=== PATIENT | male | born 1945 | race Caucasian/White ===

== ENCOUNTER 2016-12-22 17:43 | Emergency (ER) | payer MEDICARE, BC ==
--- NOTE | 2016-12-22 17:45 | EDM.PDOC ---
ED HPI NEURO - General Chief Complaint: Neuro Symptoms/Deficits Stated Complaint: MUSCLE SPASM/CANT WALK/NAUSEA Source of Information: Reports: Patient, RN, RN notes reviewed - Related Data Allergies/ADRs: Allergies Allergy/AdvReac Type Severity Reaction Status Date / Time No Known Allergies Allergy Verified 11/21/14 13:33
[2016-12-22] MEDS ORDERED: methylPREDNISolone Sodium Succinate 125 MG/2 ML SDV IM ONE (19:17)
[2016-12-22 19:20] LABS: CHLORIDE,CL 100 mmol/L (101-111); SODIUM,NA 131 mmol/L (135-145)
--- NOTE | 2016-12-22 19:25 | EDM.PDOC ---
ED HPI LOWER BACK PAIN/INJURY - General Chief Complaint: Back Pain or Injury Stated Complaint: MUSCLE SPASM/CANT WALK/NAUSEA Time Seen by Provider: 12/22/16 19:21 Source of Information: Reports: Patient History Limitations: Reports: Other - History of Present Illness INITIAL COMMENTS - FREE TEXT/NARRATIVE: states been having low back pain all day. [place] and also allergic to barley dust which he gets every year and been congested and sneezing. denies h/o K- stones but has prostate problem. 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 explained to Pt not advisable but Pt insistent. - Related Data Allergies/ADRs: Allergies Allergy/AdvReac Type Severity Reaction Status Date / Time No Known Allergies Allergy Verified 12/22/16 18:15 Home Meds: Home Meds Aspirin [Halfprin] 841 mg PO DAILY 12/22/16 [History] Pravastatin Sodium 10 mg PO DAILY 12/22/16 [History] Warfarin Sodium [Jantoven] 5 mg PO DAILY 12/22/16 [History] amLODIPine [Norvasc] 10 mg PO DAILY 12/22/16 [History] Past Medical History HEENT History: Reports: Allergic rhinitis Cardiovascular History: Reports: High cholesterol, Hypertension Musculoskeletal History: Reports: Back pain, chronic Hematologic History: Reports: Anticoagulation therapy - Past Surgical History Other Musculoskeletal Surgeries/Procedures:: right leg surgery x4 Social & Family History - Family History Family Medical History: Noncontributory - Tobacco Use Smoking Status *Q: Former Smoker Used Tobacco, but Quit: Yes Month Tobacco Last Used: 20 - Caffeine Use Caffeine Use: Reports: Coffee - Recreational Drug Use Recreational Drug Use: No ED ROS GENERAL - Review of Systems Review Of Systems: ROS reveals no pertinent complaints other than HPI. ED EXAM,LOWER BACK PAIN/INJURY - Physical Exam Exam: See Below Exam Limited By: No limitations General Appearance: alert, WD/WN, mild distress, other (back pain) Ears: hearing grossly normal Nose: nasal drainage, clear rhinorrhea Throat/Mouth: Normal voice, No airway compromise Head: atraumatic, normocephalic Neck: non-tender, full range of motion Respiratory/Chest: no respiratory distress Cardiovascular: regular rate, rhythm GI/Abdominal: soft, non tender Back Exam: muscle spasm, paraspinal tenderness, other (bilat LS paravert' without sciatica) Neurological: alert Psychiatric: flat affect Skin Exam: Warm, Dry Lymphatic: no adenopathy Course - Vital Signs Last Recorded V/S: Last Vital Signs Temp 37.7 C 12/22/16 18:20 Pulse 110 H 12/22/16 18:20 Resp 20 12/22/16 18:20 BP 158/94 H 12/22/16 18:20 Pulse Ox 97 12/22/16 18:20 - Orders/Labs/Meds Orders: Active Orders 24 hr Category Date Time Status CULTURE STREP A CONFIRMATION [RM] Stat Lab 12/22/16 18:29 Results STREP SCRN A RAPID W CULT CONF [] Stat Lab 12/22/16 18:29 Results Labs: Laboratory Tests 12/22/16 12/22/16 12/22/16 Range/Units 18:45 18:53 18:53 WBC 13.5 H (5.0-10.0) 10^3/uL RBC 4.55 L (4.6-6.2) 10^6/uL Hgb 13.8 L (14.0-18.0) g/dL Hct 41.0 (40.0-54.0) % MCV 90.1 (80-100) fL MCH 30.3 (27.0-34.0) pg MCHC 33.7 (33.0-35.0) g/dL Plt Count 209 (150-450) 10^3/uL Neut % (Auto) 93.3 H (42.2-75.2) % Lymph % (Auto) 3.1 L (20.5-50.1) % [place] % (Auto) 3.0 (2-8) % Eos % (Auto) 0.0 L (1.0-3.0) % Baso % (Auto) 0.6 (0.0-1.0) % Sodium 131 L (135-145) mmol/L Potassium 4.0 (3.6-5.0) mmol/L Chloride 100 L (101-111) mmol/L Carbon Dioxide 24.0 (21.0-31.0) mmol/L Anion Gap 11.0 BUN 16 (7-18) mg/dL Creatinine 1.1 (0.6-1.3) mg/dL Est Cr Clr Drug Dosing 73.62 mL/min Estimated GFR (MDRD) > 60 BUN/Creatinine Ratio 14.54 Glucose 123 H (74-105) mg/dL Calcium 8.6 (8.4-10.2) mg/dl Magnesium 1.5 L (1.8-2.5) mg/dL Total Bilirubin 1.0 (0.2-1.0) mg/dL AST 26 (10-42) IU/L ALT 17 (10-60) IU/L Alkaline Phosphatase 42 (42-121) IU/L Total Protein 7.2 (6.7-8.2) g/dl Albumin 4.1 (3.2-5.5) g/dl Globulin 3.1 Albumin/Globulin Ratio 1.32 Urine Color Dark yellow (YELLOW) Urine Appearance Slightly cloudy (CLEAR) Urine pH 8.5 (5.0-9.0) Ur Specific [place] 1.015 (1.005-1.030) Urine Protein 30 H (NEGATIVE) Urine Glucose (UA) Negative (NEGATIVE) Urine Ketones 40 H (NEGATIVE) Urine Occult Blood Trace-intact H (NEGATIVE) Urine Nitrite Negative (NEGATIVE) Urine Bilirubin Small H (NEGATIVE) Urine Urobilinogen 1.0 (0.2-1.0) mg/dL Ur Leukocyte Esterase Negative (NEGATIVE) Urine RBC 5-10 H /HPF Urine WBC 0-5 (0-5/HPF) /HPF Amorphous Sediment Moderate (0/HPF) /HPF Urine Bacteria Rare (0-FEW/HPF) /HPF Urine Mucus Few H /LPF Meds: Medications Discontinued Medications Generic Name Dose Route Start Last Admin Trade Name Freq PRN Reason Stop Dose Admin Ketorolac Tromethamine 30 mg 12/22/16 19:53 12/22/16 19:58 Toradol IM 12/22/16 19:54 30 mg ONETIME ONE Administration Methylprednisolone Sodium Succinate 125 mg 12/22/16 19:17 12/22/16 19:24 Solu-Medrol IM 12/22/16 19:18 125 mg ONETIME ONE Administration - Re-Assessments/Exams Free Text/Narrative Re-Assessment/Exam: 12/22/16 19:52 s/p IM solumedrol feeling better but still hurts a l9ot to move. 12/22/16 20:37 s/p toradol = much better but not 100% Departure - Departure Time of Disposition: 20:38 Disposition: Home, Self-Care 01 Condition: good Clinical Impression: Lumbar back pain Qualifiers: Chronicity: acute Back pain laterality: bilateral Sciatica presence: without sciatica Qualified Code(s): M54.5 - Low back pain Instructions: Back Pain, Adult, [id number] Forms: ED Department Discharge Additional Instructions: 1) avoid bending lifting straining next 3 to 4 days 2) use ice or heat to sore area. 3) try tylenol or motrin for pain 4) follow up at clinic or recheck as needed rx togo: norco prn
[2016-12-22] MEDS ORDERED: Ketorolac 30 MG/ML SDV IM ONE (19:53)
[2016-12-22] MEDS ORDERED: Acetaminophen/HYDROcodone 325-10 MG Tab PO ONE (20:42)
[2016-12-22] MEDS ORDERED: Acetaminophen/HYDROcodone 325-10 MG Tab ONE (20:42)
[2016-12-22 20:46] VITALS: BP 122/73
== END 2016-12-22 20:50 | disposition home or self-care (01) ==
LOC: DL.ED 17:43
DX: M54.5 Low back pain (principal); I10 Essential (primary) hypertension; E78.00 Pure hypercholesterolemia, unspecified; Z79.82 Long term (current) use of aspirin; Z79.01 Long term (current) use of anticoagulants; Z79.899 Other long term (current) drug therapy; Z87.891 Personal history of nicotine dependence
CPT/HCPCS: 36415; 80053; 81001; 83735; 85025; 87081; 87430; 87804; 96372; 99283; A9270; J1885; J2930

== ENCOUNTER 2016-12-24 05:42 | Emergency (ER) | payer MEDICARE, BC ==
[2016-12-24 05:51] VITALS: BP 139/73
[2016-12-24] MEDS ORDERED: Ketorolac 30 MG/ML SDV IM ONE (06:05)
--- NOTE | 2016-12-24 06:13 | EDM.PDOC ---
ED HPI GENERAL MEDICAL PROBLEM - General Chief Complaint: General Stated Complaint: PAIN Time Seen by Provider: 12/24/16 06:10 Source of Information: Reports: Patient History Limitations: Reports: No limitations - History of Present Illness INITIAL COMMENTS - FREE TEXT/NARRATIVE: c/o recurrent LBP was @ clinic yesterday and given prednisone & T#3 but not helping. was here prior got hydro+IM toradol that worked and able to sleep the night. Back Pain Score (Numeric/FACES): 10 - Related Data Allergies Allergy/AdvReac Type Severity Reaction Status Date / Time No Known Allergies Allergy Verified 12/22/16 18:15 Home Meds: Home Meds Aspirin [Halfprin] 841 mg PO DAILY 12/22/16 [History] Pravastatin Sodium 10 mg PO DAILY 12/22/16 [History] Warfarin Sodium [Jantoven] 5 mg PO DAILY 12/22/16 [History] amLODIPine [Norvasc] 10 mg PO DAILY 12/22/16 [History] Past Medical History HEENT History: Reports: Allergic rhinitis Cardiovascular History: Reports: High cholesterol, Hypertension Respiratory History: Reports: None Gastrointestinal History: Reports: None Genitourinary History: Reports: None Musculoskeletal History: Reports: Back pain, chronic Neurological History: Reports: None Psychiatric History: Reports: None Hematologic History: Reports: Anticoagulation therapy Immunologic History: Reports: None Oncologic (Cancer) History: Reports: None Dermatologic History: Reports: None - Past Surgical History Other Musculoskeletal Surgeries/Procedures:: right leg surgery x4 Social & Family History - Family History Family Medical History: Noncontributory - Tobacco Use Smoking Status *Q: Former Smoker Used Tobacco, but Quit: Yes Month Tobacco Last Used: 20 - Caffeine Use Caffeine Use: Reports: Coffee - Recreational Drug Use Recreational Drug Use: No ED ROS GENERAL - Review of Systems Review Of Systems: ROS reveals no pertinent complaints other than HPI. ED EXAM, GENERAL - Physical Exam Exam: See Below Exam Limited By: No limitations General Appearance: alert, WD/WN, mild distress, other (LBP) Ears: hearing grossly normal Throat/Mouth: Normal voice, No airway compromise Head: atraumatic Neck: non-tender, full range of motion Respiratory/Chest: no respiratory distress Cardiovascular: regular rate, rhythm GI/Abdominal: soft, non tender Back Exam: muscle spasm, paraspinal tenderness, other (bilateral LS mild sciatica. gait limited to pain.) Neurological: alert, oriented, normal cognition, no motor/sensory deficits Psychiatric: tearful Skin Exam: Warm, Dry Lymphatic: no adenopathy Course - Vital Signs Last Recorded V/S: Last Vital Signs Temp 36.3 C 12/24/16 05:46 Pulse 87 12/24/16 05:46 Resp 18 12/24/16 05:46 BP 139/73 12/24/16 05:46 Pulse Ox 97 12/24/16 05:46 - Orders/Labs/Meds Meds: Medications Discontinued Medications Generic Name Dose Route Start Last Admin Trade Name Freq PRN Reason Stop Dose Admin Hydrocodone Bitart/Acetaminophen 1 tab 12/24/16 06:45 [place] 325-10 Mg PO 12/24/16 06:46 ONETIME ONE Ketorolac Tromethamine 30 mg 12/24/16 06:05 12/24/16 06:09 Toradol IM 12/24/16 06:06 30 mg ONETIME ONE Administration - Re-Assessments/Exams Free Text/Narrative Re-Assessment/Exam: 12/24/16 06:47 s/p toradol=better but not 100% Departure - Departure Time of Disposition: 06:47 Disposition: Home, Self-Care 01 Condition: good Clinical Impression: Lumbar radicular syndrome Instructions: Back Pain, Adult, [id number] Forms: ED Department Discharge Additional Instructions: 1) rest 2) avoid bending lifting straining 3) try heat or ice to sore area 4) see family doctor Monday for possible MRI SCAN OF LUMBAR-SACRAL region rx given: vicodin 5/325mg tid prn x 12
[2016-12-24] MEDS ORDERED: Acetaminophen/HYDROcodone 325-10 MG Tab PO ONE (06:45)
== END 2016-12-24 06:57 | disposition home or self-care (01) ==
LOC: DL.ED 05:42
DX: M54.16 Radiculopathy, lumbar region (principal); E78.00 Pure hypercholesterolemia, unspecified; I10 Essential (primary) hypertension; Z79.82 Long term (current) use of aspirin; Z79.01 Long term (current) use of anticoagulants; Z79.899 Other long term (current) drug therapy; Z87.891 Personal history of nicotine dependence
CPT/HCPCS: 96372; 99282; A9270; J1885; 99283

== ENCOUNTER 2016-12-26 10:31 | Emergency (ER) | payer MEDICARE, BC ==
--- NOTE | 2016-12-26 10:58 | EDM.PDOC ---
ED HPI Skin/Rash - General Chief Complaint: Skin Complaint Stated Complaint: IN BY [facility] Time Seen by Provider: 12/26/16 10:55 Source: Reports: Patient, EMS History Limitations: Reports: No limitations - History of Present Illness INITIAL COMMENTS - FREE TEXT/NARRATIVE: This 71 yo male patient reports to the ED with diffuse pain (lower back, upper back, posterior neck, left hand, right elbow and right knee). This patient has been seen in the past week in the ED and in the clinic for these symptoms. The patient was placed on steroids, hydrocodone, acetaminophen and flexeril with little to no symptom relief. The patient reports similar symptoms in the past due to a reaction to Barley dust. 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, Other medication(s) - Related Data Allergies Allergy/AdvReac Type Severity Reaction Status Date / Time No Known Allergies Allergy Verified 12/26/16 10:15 Home Meds: Ambulatory Orders Medication Instructions Recorded Confirmed Aspirin [Halfprin] 841 mg PO .3 TIMES WEEK 12/22/16 12/26/16 Pravastatin Sodium 10 mg PO DAILY 12/22/16 12/26/16 Warfarin Sodium [Jantoven] 5 mg PO .4DAYS A WEEK 12/22/16 12/26/16 amLODIPine [Norvasc] 10 mg PO DAILY 12/22/16 12/26/16 Hydrocodone/Acetaminophen 1 tab PO ASDIRECTED 12/26/16 12/26/16 [Hydrocodon-Acetaminophen 5-325] Prednisone [IJD: predniSONE] 40 mg PO WITHBREAKFAST 12/26/16 12/26/16 Warfarin Sodium [Coumadin] 7.5 mg PO .3 TIMES WEEK 12/26/16 12/26/16 Past Medical History HEENT History: Reports: Allergic rhinitis Cardiovascular History: Reports: High cholesterol, Hypertension Respiratory History: Reports: None Gastrointestinal History: Reports: None Genitourinary History: Reports: None Musculoskeletal History: Reports: Back pain, chronic Neurological History: Reports: None Psychiatric History: Reports: None Hematologic History: Reports: Anticoagulation therapy Immunologic History: Reports: None Oncologic (Cancer) History: Reports: None Dermatologic History: Reports: None - Past Surgical History Other Musculoskeletal Surgeries/Procedures:: right leg surgery x4 Social & Family History - Family History Family Medical History: Noncontributory - Tobacco Use Smoking Status *Q: Former Smoker Years of Tobacco use: 20 Used Tobacco, but Quit: No Month Tobacco Last Used: 20 - Caffeine Use Caffeine Use: Reports: Coffee - Recreational Drug Use Recreational Drug Use: No ED ROS GENERAL - Review of Systems Review Of Systems: ROS reveals no pertinent complaints other than HPI. ED EXAM, SKIN/RASH Exam: See Below Exam Limited By: No limitations General Appearance: alert, WD/WN, severe distress Eye Exam: bilateral eye: EOMI, normal inspection, PERRL Ears: normal external exam, normal canal, hearing grossly normal, normal TMs Nose: normal inspection, normal mucosa, no blood Throat/Mouth: Normal inspection, Normal lips, Normal teeth, Normal gums, Normal oropharynx, Normal voice, No airway compromise Head: atraumatic, normocephalic Neck: tender midline Respiratory/Chest: no respiratory distress, lungs clear, normal breath sounds, no accessory muscle use, chest non-tender Cardiovascular: normal peripheral pulses, regular rate, rhythm, no edema, no gallop, no JVD, no murmur, no rub GI/Abdominal: normal bowel sounds, soft, non tender, no organomegaly, no distention, no abnormal bruit, no mass (Male) Exam: Deferred Rectal (Males) Exam: Deferred Back Exam: decreased range of motion, vertebral tenderness Extremities: leg pain (right knee), increased warmth (left hand, right elbow), redness (left hand and right elbow) Neurological: alert, oriented, CN II-XII intact, normal cognition, normal gait, normal reflexes, no motor/sensory deficits Psychiatric: normal affect, normal mood Location, Skin: upper extremity, right (elbow), upper extremity, left (elbow) Characteristics: erythematous Associated features: warmth, tenderness, swelling Lymphatic: no adenopathy Course - Vital Signs Last Recorded V/S: Last Vital Signs Temp 37.2 C 12/26/16 10:30 Pulse 77 12/26/16 10:30 Resp BP 145/94 H 12/26/16 10:30 Pulse Ox - Orders/Labs/Meds Orders: Active Orders 24 hr Category Date Time Status Late Tray [DIET] Routine Diet 12/26/16 12:36 Active CULTURE BLOOD [BC] Stat Lab 12/26/16 11:24 Received CULTURE BLOOD [BC] Stat Lab 12/26/16 11:29 Received UA W/MICROSCOPIC [URIN] Stat Lab 12/26/16 10:44 Uncollected Blood Culture x2 Reflex Set [OM.PC] Stat Oth 12/26/16 11:13 Ordered Labs: Laboratory Tests 12/26/16 12/26/16 12/26/16 Range/Units 10:53 10:53 10:53 WBC 21.1 H (5.0-10.0) 10^3/uL RBC 4.34 L (4.6-6.2) 10^6/uL Hgb 13.2 L (14.0-18.0) g/dL Hct 37.9 L (40.0-54.0) % MCV 87.3 (80-100) fL MCH 30.4 (27.0-34.0) pg MCHC 34.8 (33.0-35.0) g/dL Plt Count 211 (150-450) 10^3/uL Neut % (Auto) 85.8 H (42.2-75.2) % Lymph % (Auto) 2.4 L (20.5-50.1) % [place] % (Auto) 11.6 H (2-8) % Eos % (Auto) 0.0 L (1.0-3.0) % Baso % (Auto) 0.2 (0.0-1.0) % ESR (0-15) mm/hr PT (9.0-12.0) SEC INR (0.9-1.2) D-Dimer, Quantitative 3150 H (0-400) ng/mL Sodium 127 L (135-145) mmol/L Potassium 3.8 (3.6-5.0) mmol/L Chloride 94 L (101-111) mmol/L Carbon Dioxide 23.0 (21.0-31.0) mmol/L Anion Gap 13.8 BUN 27 H (7-18) mg/dL Creatinine 1.0 (0.6-1.3) mg/dL Est Cr Clr Drug Dosing TNP Estimated GFR (MDRD) > 60 BUN/Creatinine Ratio 27.00 Glucose 109 H (74-105) mg/dL Lactic Acid (0.5-2.2) mmol/L Uric Acid (2.6-7.2) mg/dL Calcium 8.3 L (8.4-10.2) mg/dl Total Bilirubin 1.0 (0.2-1.0) mg/dL AST 18 (10-42) IU/L ALT 16 (10-60) IU/L Alkaline Phosphatase 56 (42-121) IU/L Total Protein 6.6 L (6.7-8.2) g/dl Albumin 2.9 L (3.2-5.5) g/dl Globulin 3.7 Albumin/Globulin Ratio 0.78 12/26/16 12/26/16 12/26/16 Range/Units 10:53 10:53 10:53 WBC (5.0-10.0) 10^3/uL RBC (4.6-6.2) 10^6/uL Hgb (14.0-18.0) g/dL Hct (40.0-54.0) % MCV (80-100) fL MCH (27.0-34.0) pg MCHC (33.0-35.0) g/dL Plt Count (150-450) 10^3/uL Neut % (Auto) (42.2-75.2) % Lymph % (Auto) (20.5-50.1) % [place] % (Auto) (2-8) % Eos % (Auto) (1.0-3.0) % Baso % (Auto) (0.0-1.0) % ESR 102 H (0-15) mm/hr PT 84.3 H (9.0-12.0) SEC INR 8.4 H* (0.9-1.2) D-Dimer, Quantitative (0-400) ng/mL Sodium (135-145) mmol/L Potassium (3.6-5.0) mmol/L Chloride (101-111) mmol/L Carbon Dioxide (21.0-31.0) mmol/L Anion Gap BUN (7-18) mg/dL Creatinine (0.6-1.3) mg/dL Est Cr Clr Drug Dosing Estimated GFR (MDRD) BUN/Creatinine Ratio Glucose (74-105) mg/dL Lactic Acid (0.5-2.2) mmol/L Uric Acid 5.5 (2.6-7.2) mg/dL Calcium (8.4-10.2) mg/dl Total Bilirubin (0.2-1.0) mg/dL AST (10-42) IU/L ALT (10-60) IU/L Alkaline Phosphatase (42-121) IU/L Total Protein (6.7-8.2) g/dl Albumin (3.2-5.5) g/dl Globulin Albumin/Globulin Ratio // Range/Units 11:24 WBC (5.0-10.0) 10^3/uL RBC (4.6-6.2) 10^6/uL Hgb (14.0-18.0) g/dL Hct (40.0-54.0) % MCV (80-100) fL MCH (27.0-34.0) pg MCHC (33.0-35.0) g/dL Plt Count (150-450) 10^3/uL Neut % (Auto) (42.2-75.2) % Lymph % (Auto) (20.5-50.1) % [place] % (Auto) (2-8) % Eos % (Auto) (1.0-3.0) % Baso % (Auto) (0.0-1.0) % ESR (0-15) mm/hr PT (9.0-12.0) SEC INR (0.9-1.2) D-Dimer, Quantitative (0-400) ng/mL Sodium (135-145) mmol/L Potassium (3.6-5.0) mmol/L Chloride (101-111) mmol/L Carbon Dioxide (21.0-31.0) mmol/L Anion Gap BUN (7-18) mg/dL Creatinine (0.6-1.3) mg/dL Est Cr Clr Drug Dosing Estimated GFR (MDRD) BUN/Creatinine Ratio Glucose (74-105) mg/dL Lactic Acid 1.1 (0.5-2.2) mmol/L Uric Acid (2.6-7.2) mg/dL Calcium (8.4-10.2) mg/dl Total Bilirubin (0.2-1.0) mg/dL AST (10-42) IU/L ALT (10-60) IU/L Alkaline Phosphatase (42-121) IU/L Total Protein (6.7-8.2) g/dl Albumin (3.2-5.5) g/dl Globulin Albumin/Globulin Ratio Meds: Medications Discontinued Medications Generic Name Dose Route Start Last Admin Trade Name Freq PRN Reason Stop Dose Admin Hydromorphone HCl 0.5 mg 12/26/16 11:21 12/26/16 11:38 Dilaudid IVPUSH 12/26/16 11:22 0.5 mg ONETIME ONE Administration - Re-Assessments/Exams Free Text/Narrative Re-Assessment/Exam: 12/26/16 12:50 Discussed the history, examination and lab results with Dr. Montes De Oca. Dr. Montes De Oca advised to transfer the patient to [facility] in [place] for Ortho/Rheum consults. Departure - Departure Time of Disposition: 12:48 Disposition: DC/Tfer to [facility] 02 Condition: poor Clinical Impression: Inflammatory arthritis Forms: Interfacility Transfer EMTALA Care Plan Goals: Discussed the history, examination, treatments and lab results with Dr. Montes De Oca. Dr. Montes De Oca called [facility] in [place] and spoke with Dr. Oh regarding the patient. Dr. Oh accepted the patient for continued evaluation and management. The patient will be transported by [facility]. - My Orders Last 24 Hours: My Active Orders 12/26/16 10:44 UA W/MICROSCOPIC [URIN] Stat 12/26/16 11:13 Blood Culture x2 Reflex Set [OM.PC] Stat 12/26/16 11:24 CULTURE BLOOD [BC] Stat 12/26/16 11:29 CULTURE BLOOD [BC] Stat 12/26/16 12:36 Late Tray [DIET] Routine - Assessment/Plan Last 24 Hours: My Active Orders 12/26/16 10:44 UA W/MICROSCOPIC [URIN] Stat 12/26/16 11:13 Blood Culture x2 Reflex Set [OM.PC] Stat 12/26/16 11:24 CULTURE BLOOD [BC] Stat 12/26/16 11:29 CULTURE BLOOD [BC] Stat 12/26/16 12:36 Late Tray [DIET] Routine
[2016-12-26] MEDS ORDERED: HYDROmorphone 1 MG/ML Syringe IVPUSH ONE ×2 (11:21→12:52)
[2016-12-26 11:24] LABS: CHLORIDE,CL 94 mmol/L (101-111); SODIUM,NA 127 mmol/L (135-145)
[2016-12-26 14:17] VITALS: BP 136/72
== END 2016-12-26 13:33 ==
LOC: DL.ED 10:31
DX: M19.90 Unspecified osteoarthritis, unspecified site (principal); I10 Essential (primary) hypertension; E78.00 Pure hypercholesterolemia, unspecified; Z79.82 Long term (current) use of aspirin; Z79.01 Long term (current) use of anticoagulants; Z79.899 Other long term (current) drug therapy; Z87.891 Personal history of nicotine dependence
CPT/HCPCS: 36415; 80053; 81001; 83605; 84550; 85025; 85379; 85610; 85651; 87040; 96374; 96376; 99285; J1170; 99284

== ENCOUNTER 2017-01-01 23:21 | Observation (INO) | payer MEDICARE, BC ==
[2017-01-01] MEDS ORDERED: Iopamidol 612 MG/ML 75 ML Bottle IVPUSH ONE (23:38)
[2017-01-02 00:11] LABS: CHLORIDE,CL 96 mmol/L (101-111); SODIUM,NA 131 mmol/L (135-145)
[2017-01-02] MEDS ORDERED: Piperacillin/Tazobactam 3.375 GM in Sodium Chloride 0.9% 100 ML IV ONE (01:38)
[2017-01-02] MEDS ORDERED: Ondansetron 4 MG Tab.DIS PO PRN (04:02)
[2017-01-02] MEDS ORDERED: Bisacodyl 5 MG Tab PO PRN (04:02)
[2017-01-02] MEDS ORDERED: Polyethylene Glycol 3350 Powder 17 GM Packet PO PRN (04:02)
[2017-01-02] MEDS ORDERED: Magnesium Hydroxide 400 MG/5 ML Susp 30 ML Cup PO PRN (04:02)
[2017-01-02] MEDS ORDERED: Bisacodyl 10 MG Supp RECTAL PRN (04:08)
[2017-01-02] MEDS ORDERED: Aluminum Hydroxide/Magnesium Hydroxide/Simethicone Susp 30 ML Cup PO PRN (04:09)
[2017-01-02] MEDS ORDERED: Pantoprazole 40 MG Tab.CR PO SCH ×2 (04:15→06:00)
[2017-01-02] MEDS ORDERED: Warfarin 5 MG Tab PO SCH (04:15)
[2017-01-02] MEDS: Morphine 2 MG/ML Syringe IVPUSH PRN ×2 (04:24→13:09)
[2017-01-02] MEDS: Cyclobenzaprine 10 MG Tab PO PRN ×2 (04:31→13:08)
[2017-01-02] MEDS: Piperacillin/Tazobactam 3.375 GM in Sodium Chloride 0.9% 100 ML IV SCH ×2 (04:37→10:46)
--- NOTE | 2017-01-02 05:08 | EDM.PDOC ---
ED HPI GENERAL MEDICAL PROBLEM - General Chief Complaint: Back Pain or Injury Stated Complaint: AMB Time Seen by Provider: 01/01/17 23:40 Source of Information: Reports: Patient, EMS History Limitations: Reports: No limitations - History of Present Illness INITIAL COMMENTS - FREE TEXT/NARRATIVE: ED with c/o abdominal pain and bloating. Recently discharged from [facility] with polyarticular arthritis. Notes someimprovment in shoulder pain. Left hand more swollen and red. chronic back pain and takes routine oxycodone for pain. last BM yesterday. Hx constipation. Recently put on prednisone. 1mg Dilaudid enroute. pain improved from 07/21 to 10/21. Denies nausea. Generalized Pain Score (Numeric/FACES): 2 - Related Data Allergies Allergy/AdvReac Type Severity Reaction Status Date / Time No Known Allergies Allergy Verified 12/26/16 10:15 Home Meds: Home Meds Aspirin [Halfprin] 841 mg PO .3 TIMES WEEK 12/22/16 [History] Pravastatin Sodium 10 mg PO DAILY 12/22/16 [History] Warfarin Sodium [Jantoven] 10 mg PO .4DAYS A WEEK 12/22/16 [History] amLODIPine [Norvasc] 10 mg PO DAILY 12/22/16 [History] Hydrocodone/Acetaminophen [Hydrocodon-Acetaminophen 5-325] 1 tab PO ASDIRECTED 12/26/16 [History] Prednisone [IJD: predniSONE] 40 mg PO WITHBREAKFAST 12/26/16 [History] Past Medical History HEENT History: Reports: Allergic rhinitis Cardiovascular History: Reports: High cholesterol, Hypertension Respiratory History: Reports: None Gastrointestinal History: Reports: None Genitourinary History: Reports: Other (see below) Other Genitourinary History: Has enlarged scrotum from a surgery he had several years ago Musculoskeletal History: Reports: Back pain, chronic Neurological History: Reports: None Psychiatric History: Reports: None Hematologic History: Reports: Anticoagulation therapy Immunologic History: Reports: None Oncologic (Cancer) History: Reports: None Dermatologic History: Reports: None - Past Surgical History Other Musculoskeletal Surgeries/Procedures:: right leg surgery x4 Social & Family History - Family History Family Medical History: Noncontributory - Tobacco Use Smoking Status *Q: Former Smoker Years of Tobacco use: 25 Packs/Tins Daily: 2 Used Tobacco, but Quit: No Month Tobacco Last Used: 20 Tobacco Use Comment: Uses smokeless tobacco uses 1 pouch a day Second Hand Smoke Exposure: No - Caffeine Use Caffeine Use: Reports: None - Recreational Drug Use Recreational Drug Use: No ED ROS GENERAL - Review of Systems Review Of Systems: See Below Constitutional: Reports: no symptoms HEENT: Reports: No symptoms Respiratory: Reports: No Symptoms Cardiovascular: Reports: No symptoms GI/Abdominal: Reports: Abdominal pain, Constipation, Distension. Denies: Nausea , Vomiting : Reports: other (difficulty urinating at times) Musculoskeletal: Reports: hand pain (left), joint pain, joint swelling Skin: Reports: erythema (left hand) Neurological: Reports: No Symptoms Psychiatric: Reports: No symptoms ED EXAM, GENERAL - Physical Exam Exam: See Below Exam Limited By: Uncooperative General Appearance: mild distress (increases with movment) Eye Exam: bilateral eye: EOMI Ears: normal external exam, normal TMs Nose: normal inspection Throat/Mouth: Normal inspection Head: atraumatic, normocephalic Neck: normal inspection Respiratory/Chest: no respiratory distress, lungs clear, normal breath sounds Cardiovascular: normal peripheral pulses, regular rate, rhythm GI/Abdominal: distended, abnormal bowel sounds:. No: guarding, rigid, rebound (Male) Exam: Scrotal swelling (unchanged from norm) Back Exam: decreased range of motion, muscle spasm, paraspinal tenderness Extremities: normal inspection, pedal edema (right lower extemity greater than right) Neurological: alert, oriented, normal cognition Psychiatric: normal affect, normal mood (talkeative, detailed) Skin Exam: Warm, Dry, Intact, Erythema (dorsal left hand) Course - Vital Signs Last Recorded V/S: Last Vital Signs Temp 97.5 F 01/02/17 03:01 Pulse 87 01/02/17 03:01 Resp 16 01/02/17 03:01 BP 129/82 01/02/17 03:01 Pulse Ox 95 01/02/17 03:01 - Orders/Labs/Meds Orders: Active Orders 24 hr Category Date Time Status CULTURE BLOOD [BC] Stat Lab 01/01/17 23:43 Received Medication Orders Al Hydroxide/Mg Hydroxide (Mag-Al Plus) 30 ml PO Q4H PRN PRN Reason: Abdominal Pain Amlodipine Besylate (Norvasc) 10 mg PO DAILY MORGAN Aspirin (Halfprin) 841 mg PO .3 TIMES WEEK [facility]GAN Bisacodyl (Dulcolax) 5 mg PO DAILY PRN PRN Reason: Constipation Bisacodyl (Dulcolax) 10 mg RECTAL DAILY PRN PRN Reason: Constipation Last Admin: 01/02/17 04:31 Dose: 10 mg Cyclobenzaprine HCl (Flexeril) 10 mg PO TID PRN PRN Reason: Muscle Spasm Last Admin: 01/02/17 04:31 Dose: 10 mg Piperacillin Sod/Tazobactam (Sod 3.375 gm/ Sodium Chloride) 100 mls @ 200 mls/ hr IV Q6H MORGAN Last Admin: 01/02/17 04:37 Dose: Magnesium Hydroxide (Milk Of Magnesia) 30 ml PO Q12H PRN PRN Reason: Constipation Last Admin: 01/02/17 04:26 Dose: 30 ml Morphine Sulfate (Morphine) 2 mg IVPUSH Q2H PRN PRN Reason: Pain (severe 7-10) Last Admin: 01/02/17 04:24 Dose: 2 mg Ondansetron HCl (Zofran Odt) 4 mg PO Q4H PRN PRN Reason: nausea, able to take PO Oxycodone/Acetaminophen (Percocet 325-5 Mg) 1 tab PO Q4H PRN PRN Reason: Pain (moderate 4-6) Pantoprazole Sodium (Protonix) 40 mg PO ACBREAKFAST [facility] Polyethylene Glycol (Miralax) 17 gm PO DAILY PRN PRN Reason: Constipation Last Admin: 01/02/17 04:26 Dose: 17 gm Pravastatin Sodium (Pravachol) 10 mg PO DAILY [facility] Prednisone (Prednisone) 40 mg PO WITHBREAKFAST [facility] Warfarin Sodium (Coumadin) 10 mg PO .4DAYS A WEEK [facility] Labs: Laboratory Tests 01/01/17 01/01/17 01/01/17 Range/Units 23:43 23:43 23:43 WBC 28.1 H* (5.0-10.0) 10^3/uL RBC 3.99 L (4.6-6.2) 10^6/uL Hgb 12.2 L (14.0-18.0) g/dL Hct 35.8 L (40.0-54.0) % MCV 89.7 (80-100) fL MCH 30.6 (27.0-34.0) pg MCHC 34.1 (33.0-35.0) g/dL Plt Count 467 H (150-450) 10^3/uL Neut % (Auto) 91.8 H (42.2-75.2) % Lymph % (Auto) 2.6 L (20.5-50.1) % Dukes % (Auto) 5.3 (2-8) % Eos % (Auto) 0.1 L (1.0-3.0) % Baso % (Auto) 0.2 (0.0-1.0) % Add Manual Diff Yes Neutrophils % (Manual) 82 % Band Neutrophils % 5 % Lymphocytes % (Manual) 6 % Monocytes % (Manual) 7 % PT 33.7 H (9.0-12.0) SEC INR 3.3 H (0.9-1.2) Sodium 131 L (135-145) mmol/L Potassium 4.2 (3.6-5.0) mmol/L Chloride 96 L (101-111) mmol/L Carbon Dioxide 28.0 (21.0-31.0) mmol/L Anion Gap 11.2 BUN 27 H (7-18) mg/dL Creatinine 0.8 (0.6-1.3) mg/dL Est Cr Clr Drug Dosing TNP Estimated GFR (MDRD) > 60 BUN/Creatinine Ratio 33.75 Glucose 150 H (74-105) mg/dL Lactic Acid (0.5-2.2) mmol/L Calcium 7.9 L (8.4-10.2) mg/dl Total Bilirubin 1.5 H (0.2-1.0) mg/dL AST 268 H (10-42) IU/L ALT 130 H (10-60) IU/L Alkaline Phosphatase 479 H (42-121) IU/L Total Protein 5.8 L (6.7-8.2) g/dl Albumin 2.2 L (3.2-5.5) g/dl Globulin 3.6 Albumin/Globulin Ratio 0.61 Urine Color (YELLOW) Urine Appearance (CLEAR) Urine pH (5.0-9.0) Ur Specific [place] (1.005-1.030) Urine Protein (NEGATIVE) Urine Glucose (UA) (NEGATIVE) Urine Ketones (NEGATIVE) Urine Occult Blood (NEGATIVE) Urine Nitrite (NEGATIVE) Urine Bilirubin (NEGATIVE) Urine Urobilinogen (0.2-1.0) mg/dL Ur Leukocyte Esterase (NEGATIVE) Urine RBC /HPF Urine WBC (0-5/HPF) /HPF Urine Bacteria (0-FEW/HPF) /HPF Urine Mucus /LPF 01/01/17 01/02/17 Range/Units 23:43 02:06 WBC (5.0-10.0) 10^3/uL RBC (4.6-6.2) 10^6/uL Hgb (14.0-18.0) g/dL Hct (40.0-54.0) % MCV (80-100) fL MCH (27.0-34.0) pg MCHC (33.0-35.0) g/dL Plt Count (150-450) 10^3/uL Neut % (Auto) (42.2-75.2) % Lymph % (Auto) (20.5-50.1) % Dukes % (Auto) (2-8) % Eos % (Auto) (1.0-3.0) % Baso % (Auto) (0.0-1.0) % Add Manual Diff Neutrophils % (Manual) % Band Neutrophils % % Lymphocytes % (Manual) % Monocytes % (Manual) % PT (9.0-12.0) SEC INR (0.9-1.2) Sodium (135-145) mmol/L Potassium (3.6-5.0) mmol/L Chloride (101-111) mmol/L Carbon Dioxide (21.0-31.0) mmol/L Anion Gap BUN (7-18) mg/dL Creatinine (0.6-1.3) mg/dL Est Cr Clr Drug Dosing Estimated GFR (MDRD) BUN/Creatinine Ratio Glucose (74-105) mg/dL Lactic Acid 0.9 (0.5-2.2) mmol/L Calcium (8.4-10.2) mg/dl Total Bilirubin (0.2-1.0) mg/dL AST (10-42) IU/L ALT (10-60) IU/L Alkaline Phosphatase (42-121) IU/L Total Protein (6.7-8.2) g/dl Albumin (3.2-5.5) g/dl Globulin Albumin/Globulin Ratio Urine Color Dark yellow (YELLOW) Urine Appearance Slightly cloudy (CLEAR) Urine pH 7.0 (5.0-9.0) Ur Specific [place] 1.015 (1.005-1.030) Urine Protein Negative (NEGATIVE) Urine Glucose (UA) Negative (NEGATIVE) Urine Ketones Negative (NEGATIVE) Urine Occult Blood Trace-intact H (NEGATIVE) Urine Nitrite Negative (NEGATIVE) Urine Bilirubin Negative (NEGATIVE) Urine Urobilinogen 1.0 (0.2-1.0) mg/dL Ur Leukocyte Esterase Negative (NEGATIVE) Urine RBC 5-10 H /HPF Urine WBC 0-5 (0-5/HPF) /HPF Urine Bacteria Rare (0-FEW/HPF) /HPF Urine Mucus Rare /LPF Meds: Medications Generic Name Dose Route Start Last Admin Trade Name Freq PRN Reason Stop Dose Admin Al Hydroxide/Mg Hydroxide 30 ml 01/02/17 04:09 Mag-Al Plus PO Q4H PRN Abdominal Pain Amlodipine Besylate 10 mg 01/02/17 09:00 Norvasc PO DAILY [facility] Aspirin 841 mg 01/02/17 04:15 Halfprin PO .3 TIMES WEEK [facility] Bisacodyl 5 mg 01/02/17 04:02 Dulcolax PO DAILY PRN Constipation Bisacodyl 10 mg 01/02/17 04:08 01/02/17 04:31 Dulcolax RECTAL 10 mg DAILY PRN Administration Constipation Cyclobenzaprine HCl 10 mg 01/02/17 04:13 01/02/17 04:31 Flexeril PO 10 mg TID PRN Administration Muscle Spasm Piperacillin Sod/Tazobactam 100 mls @ 200 mls/hr 01/02/17 04:15 01/02/17 04: 37 Sod 3.375 gm/ Sodium Chloride IV Not Given Q6H MORGAN Magnesium Hydroxide 30 ml 01/02/17 04:02 01/02/17 04:26 Milk Of Magnesia PO 30 ml Q12H PRN Administration Constipation Morphine Sulfate 2 mg 01/02/17 04:02 01/02/17 04:24 Morphine IVPUSH 2 mg Q2H PRN Administration Pain (severe 7-10) Ondansetron HCl 4 mg 01/02/17 04:02 Zofran Odt PO Q4H PRN nausea, able to take PO Oxycodone/Acetaminophen 1 tab 01/02/17 04:02 Percocet 325-5 Mg PO Q4H PRN Pain (moderate 4-6) Pantoprazole Sodium 40 mg 01/02/17 06:00 Protonix PO ACBREAKFAST [facility] Polyethylene Glycol 17 gm 01/02/17 04:02 01/02/17 04:26 Miralax PO 17 gm DAILY PRN Administration Constipation Pravastatin Sodium 10 mg 01/02/17 09:00 Pravachol PO DAILY [facility]ORGAN Prednisone 40 mg 01/02/17 08:00 Prednisone PO WITHBREAKFAST [facility] Warfarin Sodium 10 mg 01/02/17 04:15 Coumadin PO .4DAYS A WEEK MORGAN Discontinued Medications Generic Name Dose Route Start Last Admin Trade Name Freq PRN Reason Stop Dose Admin Piperacillin Sod/Tazobactam 100 mls @ 200 mls/hr 01/02/17 01:38 01/02/17 02: 03 Sod 3.375 gm/ Sodium Chloride IV 01/02/17 02:07 200 mls/hr ONETIME ONE Administration Iopamidol 75 ml 01/01/17 23:38 01/02/17 00:29 Isovue-300 (61%) IVPUSH 01/01/17 23:39 75 ml ONETIME ONE Administration Pantoprazole Sodium 40 mg 01/02/17 04:15 Protonix PO ACBREAKFAST [facility]ORGAN - Radiology Interpretation Free Text/Narrative:: CT some distension large intestine, no obstruction, thickened gallbladder, no stones or ductal dilitation - Re-Assessments/Exams Free Text/Narrative Re-Assessment/Exam: 01/02/17 05:21 Dr Oh accepting of patient for observation with abdominal pain, constipation acute and chronic pain with probable cholecystis. Road conditions hampering transfer. Departure - Departure Time of Disposition: 02:20 Disposition: Admitted As Inpatient 66 Condition: fair Clinical Impression: Elevated LFTs, Elevated INR, Abdominal distension, Cholecystitis, Pain - My Orders Last 24 Hours: My Active Orders 01/01/17 23:43 CULTURE BLOOD [BC] Stat - Assessment/Plan Last 24 Hours: My Active Orders 01/01/17 23:43 CULTURE BLOOD [BC] Stat
--- NOTE | 2017-01-02 05:54 | HP ---
CHIEF COMPLAINT: Abdominal pain. HISTORY OF PRESENTING ILLNESS: Mr. 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 The patient was recently discharged from [facility] with oxycodone and prednisone. Earlier today, the patient presented to the ER with complaints of having increased abdominal pain. The patient had a CT scan of the abdomen and pelvis, which showed evidence of possible cholecystitis and the patient could not go to [facility] secondary to bad weather, bad road conditions, so patient is being referred to observation status here. The patient states his abdominal pain started yesterday, which has been progressively getting worse. The abdominal pain is graded as 8/10 in intensity with no clear aggravating factors, partially relieved with pain medication, not associated with the nausea or vomiting. The patient had 1 large bowel movement last night and pain has been getting worse since then. He has not had a good bowel movement in the last 3-4 days. Denies any fevers or chills. No complaints of chest pain. No complaints of shortness of breath. Continues to have pain, mainly involving the left hand and also to the neck region. He grades the pain in the neck region as 8/10 in intensity, aggravated on movement, relieved partially with pain medication, nonradiating-type of pain, not associated with any numbness or tingling in his hand, not associated with any numbness or tingling to his extremities. Denied any weakness to his upper extremities. He denies any fevers or chills at this time. No complaints of headaches, no complaints of changes in the vision. The patient denied any history of chest pains on exertion, but has mild dyspnea on exertion. No history of orthopnea or paroxysmal nocturnal dyspnea. The patient denied any history of hematemesis, hematochezia, or melanotic stools. Normal bowel and bladder habits otherwise, but lately has been constipated in the last few days. REVIEW OF SYSTEMS: A complete review of system including skin, ear, nose, and throat, cardiovascular system, respiratory system, gastrointestinal system, genitourinary system, hematology, oncology, neurology, allergy, immunology, endocrinology were all evaluated and they were negative except for the above- said notes. PAST MEDICAL HISTORY: Significant for hypertension, hyperlipidemia, history of tobacco use in the past, hypertension, obesity, peripheral arterial disease, history of panic attacks in the past. PAST SURGICAL HISTORY: Significant for arterial bypass surgery, status post thrombectomy of the right femoral popliteal bypass, status post fasciotomy in the past, revision of the right femoral popliteal bypass graft, status post thrombolysis of the lower extremities. ALLERGIES: Patient noted to have allergies to Crestor. SOCIAL HISTORY: Patient had history of smoking in the past, but not currently. No history of alcohol use. FAMILY HISTORY: Significant for brain cancer and diabetes in his mother. Cerebrovascular accident in his father, hypertension in his father. HOME MEDICATIONS: Include: 1. Norvasc 10 mg daily. 2. Coumadin 10 mg 4 times a week. 3. Prednisone 20 mg daily. 4. Pravastatin 10 mg daily. 5. Oxycodone 1 tablet as directed. 6. Aspirin 81 mg 3 times a week. PHYSICAL EXAMINATION: Vital Signs: Temperature of 97.5, pulse of 87, blood pressure 129/82, respiratory rate of 16, saturating at 95% on room air. General Appearance: The patient is well oriented to time, place, and person. Follows commands spontaneously. Cardiovascular: S1 and S2 heard with normal intensity. No gallops. Respiratory: Clear to auscultation bilaterally. No wheeze. No crepitations. Abdomen: Soft. Bowel sounds positive. Nontender. No rigidity. Tenderness elicited in the epigastric region. Distention noted in the epigastric region. No rebound tenderness. No rigidity at this time. Extremities: No edema in bilateral lower extremities. The patient is noted to have swelling of the left middle finger metacarpophalangeal joint and tenderness noted. Neurology: No gross focal neurological deficit appreciated. LABORATORY DATA: WBC 28.1, hemoglobin 12.2, hematocrit 35.8, platelet count 467. INR 3.3, PT 33.7. Sodium 131, potassium 4.2, chloride 96, bicarb 28, BUN 27, creatinine 0.8, glucose 150. Total bilirubin 1.5. AST 268, ALT 130, alkaline phosphorus 479. Total protein 5.8. Urinalysis negative for nitrites. Negative for leukocytes. ASSESSMENT: 1. Abdominal pain. 2. 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 3. Hypertension. 4. Hyperlipidemia. 5. Peripheral arterial disease. 6. Constipation. PLAN: 1. Abdominal pain. The patient presents with abdominal pain. The patient had a CT scan of the abdomen and pelvis. Preliminary report suggest possible acute cholecystitis with thickening of the gallbladder wall. He is also noted to have distended colon, unsure if the patient has constipation. The patient denies any fevers or chills, has tenderness to the epigastric region. No Zavala sign elicited at this time. Patient could not be transported to the [facility] secondary to bad road condition. The patient will be referred to observation status. We will get an ultrasound of the abdomen. We will start him on IV Zosyn for now. Given his leukocytosis, could have leukocytosis from prednisone dosing too. We will obtain blood cultures, and we will closely follow the patient. 2. Constipation. The patient is noted to have distended colon. The patient has not moved his bowel for the last 3-4 days. We will have him on bowel regimen. Continue with milk of magnesium and one can try suppository to help him have a bowel movement. Patient claims that he had a good bowel movement yesterday. 3. Arthritis. The patient was recently diagnosed with spondyloarthritis, reactive arthritis. He was started on prednisone 20 mg once a day, we will continue the same. The patient had extensive workup done at [facility]. His HLA-B27 is negative. His rheumatoid factor was also negative and so his double-stranded DNA antibodies. MARY ANNE screen was negative, so it is a seronegative arthritis. 4. Hypertension. The patient's blood pressure seems to be in acceptable range. We will continue with the Norvasc. 5. DVT prophylaxis. The patient is currently on Coumadin. We will hold any heparin products. Continue with the Coumadin. His INR is at 3.3. 6. Code status. The patient wants to be full code. 7. Discussed with Pam from ER regarding the plan of care. Reviewed the labs and medications. Reviewed the old charts. MODL /[id number] ALHAJI
[2017-01-02] MEDS: Acetaminophen/oxyCODONE 325-5 MG Tab PO PRN ×2 (07:53→12:33)
[2017-01-02] MEDS ORDERED: predniSONE 20 MG Tab PO SCH ×2 (08:00)
[2017-01-02] MEDS ORDERED: amLODIPine 5 MG Tab PO SCH (09:00)
[2017-01-02] MEDS ORDERED: Pravastatin 20 MG Tab PO SCH (09:00)
[2017-01-02] MEDS ORDERED: Aspirin 81 MG Tab.EC PO SCH (10:15)
[2017-01-02 10:43] VITALS: BP 131/64
[2017-01-02] MEDS: Sodium Chloride 0.9% 10 ML Syringe FLUSH PRN ×3 (10:47→13:10)
[2017-01-02 11:21] LABS: CHLORIDE,CL 96 mmol/L (101-111); SODIUM,NA 130 mmol/L (135-145)
--- NOTE | 2017-01-02 12:11 | CR ---
CLINICAL HISTORY: 71-year-old male with neck pain. INTERPRETATION: AP and lateral cervical spine with swimmer's, and extension views cervical spine doc ument multilevel mid cervical disc disease, i.e., interspace narrowing, endplate sclerosis and hyper trophic marginal/uncinate spur formation particularly C3-4, C4-C5, C5-6 and C6-7 levels. Reversal of the usual cervical lordosis but no sign of prevertebral soft tissue swelling, cervical f racture or spondylolisthesis (no cervical instability). No pathologic skeletal lesion, cervical rib anomalies or lesions and the lung apices. CONCLUSION: Multilevel mid and lower cervical disc disease with associated hypertrophic spondylosis.
--- NOTE | 2017-01-02 12:12 | US ---
CLINICAL HISTORY: 71-year-old male with mid epigastric pain (procedure technically compromised by pa tient's position and refusal to lie decubitus.) INTERPRETATION: Abnormally distended gallbladder with what appears to be dense, dependently layering, intraluminal " sludge". No discrete gallstones, mucosal wall polyps or abnormal "shadowing". Homogeneously dense liver without sign of discrete intrahepatic mass lesion. Pancreas obscured by gas. No ascites.
--- NOTE | 2017-01-03 02:39 | DISCH ---
ADMITTING DIAGNOSES: 1. Acute cholecystitis. 2. Abdominal pain. 3. Spondyloarthritis with reactive arthritis. DISCHARGE DIAGNOSES: 1. Acute cholecystitis. 2. Abdominal pain secondary to distended colon. 3. Ongoing reactive arthritis, requiring prednisone treatment. 4. Leukocytosis, improving. HISTORY OF PRESENT ILLNESS: Mr. Abiodun Jean Baptiste is a 71-year-old male with medical history significant for hypertension; hyperlipidemia; peripheral arterial disease, on chronic anticoagulation with Coumadin recently diagnosed with possible reactive arthritis, admitted to the hospital with complaints of increasing abdominal pain. The patient had a CT scan of the abdomen and pelvis done at the time of admission, which showed evidence of acute cholecystitis. The patient could not be transported to [facility] from the ER secondary to bad road condition. The patient was referred to observation status overnight and was started on IV Zosyn and continued with IV morphine for better pain control. He was continued on IV fluids. His pain seems to be improved, but the patient continues to have abdominal pain. The patient had an ultrasound of abdomen done on this admission, which showed evidence of abnormally distended gallbladder with what appears to be dense, dependently layering intraluminal sludge; no discrete gallstones noted. The patient also had a cervical spine x- ray as he was complaining of increasing neck pain. No acute fractures or dislocation noted, but noted to have disc disease chronic in nature. The patient was continued on IV Zosyn, his leukocytosis got improved. The patient is being transported to higher level of care per General Surgery consultation and possible IR consultation for possible cholecystostomy tube. The patient noted to be on Coumadin with therapeutic INR of 3 at this time. He remained hemodynamically stable on this admission. He is discharged to [facility] for further cares in stable condition. DISCHARGE MEDICATIONS: Include: 1. Percocet 5/325 mg one tablet as needed. 2. Aspirin 81 mg on Monday, Monday, and Monday. 3. Zofran 4 mg every 4 hours as needed for nausea and vomiting. 4. Protonix 40 mg before breakfast. 5. Zosyn 3.375 g IV q.6 hourly. 6. Pravastatin 10 mg daily. 7. Prednisone 20 mg with breakfast. 8. Coumadin 5 mg on Monday, Monday, , Monday and 7.5 mg on Monday, Monday, and Monday. 9. Norvasc 10 mg daily. PHYSICAL EXAMINATION: Vital Signs: On the day of discharge vitals; temperature of 98, pulse of 78, blood pressure 131/64, respiratory rate of 20, saturating at 97% on room air. General Appearance: The patient is well oriented to time, place, and person. Follows commands spontaneously. Cardiovascular System: S1, S2 heard with normal intensity. No gallops. Respiratory System: Clear to auscultation bilaterally. No wheeze. No crepitations. Abdomen: Mild tenderness in the epigastric region and the right upper quadrant. No rigidity. Mild rebound tenderness, positive. No guarding. Extremities: No edema in bilateral lower extremities. Edema and swelling noted to the left hand, mainly on the base of the left ring finger with swelling of the metacarpophalangeal joint and also tenderness elicited in the cervical spine on the base of the neck. No gross focal neurological deficits. Neurology: No gross focal neurological deficits appreciated. Skin: No acute rash noted. CONDITION ON ADMISSION: Poor. CONDITION ON DISCHARGE: Stable. ACTIVITY: As tolerated. DIET: Cardiac healthy diet. PLAN: 1. Follow up with primary care physician in 2 to 3 weeks post discharge from the [facility]. 2. The patient is discharged to [facility] for higher level of care for Surgery consultation, Interventional Radiology consultation, and GI consultation as he is noted to have elevated liver function test. 3. The patient needs ambulance ride for transportation secondary to ongoing pain and receiving IV antibiotics and closer monitoring. [facility] /[id number]
== END 2017-01-02 13:25 ==
LOC: DL.ED 23:21 → DL.MS 01-02 01:47 → UNDOADMOB 01-02 01:47 → DL.MS 01-02 04:02
PROVIDERS: ADMIT Internal Medicine; ATTEND Internal Medicine
DX: K81.0 Acute cholecystitis (principal); R10.9 Unspecified abdominal pain; M02.30 Reiter's disease, unspecified site; I10 Essential (primary) hypertension; E78.5 Hyperlipidemia, unspecified; I73.9 Peripheral vascular disease, unspecified; K59.00 Constipation, unspecified; Z88.8 Allergy status to other drugs, medicaments and biological substances; E66.9 Obesity, unspecified; Z98.890 Other specified postprocedural states; D72.829 Elevated white blood cell count, unspecified; Z79.82 Long term (current) use of aspirin; Z79.01 Long term (current) use of anticoagulants; Z79.899 Other long term (current) drug therapy
CPT/HCPCS: 36415; 72052; 74177; 76705; 80048; 80053; 80076; 81001; 83605; 85025; 85027; 85610; 85651; 86140; 87040; 96365; 96366; 96375; 96376; 99285; A9270; G0378; J2270; J2543; J7050; Q9967; 99235

== ENCOUNTER 2017-01-28 08:30 | Emergency (ER) | payer MEDICARE, BC ==
[2017-01-28 09:00] VITALS: BP 148/81
--- NOTE | 2017-01-28 09:34 | EDM.PDOC ---
{null, ED HPI GENERAL MEDICAL PROBLEM - General Chief Complaint: Cardiovascular Problem Stated Complaint: CHECK BLOOD PRESSURE Time Seen by Provider: 01/28/17 09:00 Source of Information: Reports: Patient - History of Present Illness INITIAL COMMENTS - FREE TEXT/NARRATIVE: patient comes emergency Department today with complaints of hypertension and concerns over the initiation of the new medication baclofen. Patient has a chronic pain management patient Dr. Rose at the clinic here in town. He typically is on oxycodone and Zanaflex. Recently they discontinued the Zanaflex as it has not been as effective as it has been in the past. He was told to start on baclofen for which she has taken 2 doses. He was instructed by the pharmacist to watch his blood pressure closely as it can cause some spike in his blood pressure. This morning as he typically does he checks his blood pressure 3-7 times a day. He noted that it was quite elevated in the 160s systolically. He did not have any headache nausea or neurological symptoms. He has no chest pain or shortness of breath. He has no swelling in his ankles. He has no other symptoms. His major complaint is that he is concerned that his medication baclofen is causing a spike in his blood pressure. He would like permission to discontinue the baclofen at this time and return to the Zanaflex. Lower Back Pain Score (Numeric/FACES): 6 - Related Data Allergies Allergy/AdvReac Type Severity Reaction Status Date / Time No Known Allergies Allergy Verified 01/28/17 08:36 Home Meds: Home Meds Aspirin [Halfprin] 81 mg PO .MO.WE.FR 12/22/16 [History] Pravastatin Sodium 10 mg PO DAILY 12/22/16 [History] Hydrocodone/Acetaminophen [Hydrocodon-Acetaminophen 5-325] 1 tab PO ASDIRECTED 12/26/16 [History] Ondansetron [Zofran ODT] 4 mg PO Q4H PRN #0 tab.dis 01/02/17 [Rx] Baclofen [Baclofen] 10 mg PO ASDIRECTED PRN 01/28/17 [History] Metoprolol Tartrate 50 mg PO ASDIRECTED 01/28/17 [History] Sennosides/Docusate Sodium [Senna S Tablet] 1 tab PO ASDIRECTED 01/28/17 [ History] Past Medical History HEENT History: Reports: Allergic Rhinitis Cardiovascular History: Reports: High Cholesterol, Hypertension Respiratory History: Reports: None Gastrointestinal History: Reports: None Genitourinary History: Reports: None Musculoskeletal History: Reports: Back Pain, Chronic Neurological History: Reports: None Psychiatric History: Reports: None Hematologic History: Reports: Anticoagulation Therapy Immunologic History: Reports: None Oncologic (Cancer) History: Reports: None Dermatologic History: Reports: None - Past Surgical History Other Musculoskeletal Surgeries/Procedures:: right leg surgery x4 Social & Family History - Family History Family Medical History: Noncontributory - Tobacco Use Smoking Status *Q: Never Smoker Years of Tobacco use: 25 Packs/Tins Daily: 2 Used Tobacco, but Quit: No Month Tobacco Last Used: 20 Second Hand Smoke Exposure: No - Caffeine Use Caffeine Use: Reports: Coffee - Recreational Drug Use Recreational Drug Use: No ED ROS GENERAL - Review of Systems Review Of Systems: ROS reveals no pertinent complaints other than HPI. ED EXAM, GENERAL - Physical Exam Exam: See Below Exam Limited By: No Limitations General Appearance: Alert, WD/WN, No Apparent Distress Ears: Normal External Exam, Normal Canal, Hearing Grossly Normal, Normal TMs Nose: Normal Inspection, Normal Mucosa Throat/Mouth: Normal Inspection, Normal Lips, Normal Teeth Head: Atraumatic, Normocephalic Neck: Normal Inspection, Supple, Non-Tender Respiratory/Chest: No Respiratory Distress, Lungs Clear, Normal Breath Sounds, No Accessory Muscle Use, Chest Non-Tender Cardiovascular: Normal Peripheral Pulses, Regular Rate, Rhythm, No Edema Peripheral Pulses: 2+: Radial (L), Radial (R), Posterior Tibial (L), Posterior Tibial (R), Dorsalis Pedis (L), Dorsalis Pedis (R) GI/Abdominal: Normal Bowel Sounds (Male) Exam: Deferred Rectal (Males) Exam: Deferred Back Exam: Muscle Spasm (Paraspinus and posterior clavicles. ) Extremities: Normal Inspection, Non-Tender, No Pedal Edema Skin Exam: Warm, Dry, Intact, Normal Color Lymphatic: No Adenopathy Course - Vital Signs Last Recorded V/S: Last Vital Signs Temp 36.3 C 01/28/17 08:47 Pulse 97 01/28/17 08:47 Resp 20 01/28/17 08:47 BP 148/81 H 01/28/17 08:59 Pulse Ox 95 01/28/17 08:47 Vital Signs 01/28/17 01/28/17 08:47 08:59 Temperature [ 36.3 C Temporal] Pulse, 97 Peripheral [ Pulse Oximetry] Respiratory 20 Rate Blood Pressure 151/93 H 148/81 H [Right Upper Arm] O2 Sat by Pulse 95 Oximetry - Re-Assessments/Exams Free Text/Narrative Re-Assessment/Exam: 01/28/17 09:39 blood pressure improved while he was in the emergency department. He has no symptoms complaint. No chest pain shortness breath dizziness lightheadedness palpitations weakness. as he has not had problems with the Zanaflex in the past and has only discontinued it because it was not working as well, it is appropriate at this time to hold the baclofen and return to the Zanaflex until he can talk with his primary care provider on Monday. Which is what he was looking for the emergency department. He does have some Zanaflex at home he will use that he was prescribed in the past. discharge instructions as below were explained to the patient is comfortable with this plan his questions are answered. Departure - Departure Time of Disposition: : Disposition: Home, Self-Care 01 Clinical Impression: Medication adverse effect Qualifiers: Encounter type: initial encounter Qualified Code(s): T88.7XXA - Unspecified adverse effect of drug or medicament, initial encounter Forms: ED Department Discharge Additional Instructions: Hold your Baclofen at this time. May return to the usage of the Zanaflex. Return to the ED if new or worsening symptoms. Recheck with primary care on monday to determine clinical mental health counselor plan for chronic pain. - Assessment/Plan Assessment:: Medication reaction. Chronic pain syndrome. Plan: Hold your Baclofen at this time. May return to the usage of the Zanaflex. Return to the ED if new or worsening symptoms. Recheck with primary care on monday to determine clinical mental health counselor plan for chronic pain. }
== END 2017-01-28 09:28 | disposition home or self-care (01) ==
LOC: DL.ED 08:30
DX: I10 Essential (primary) hypertension (principal); T42.8X5A Adverse effect of antiparkinsonism drugs and other central muscle-tone depressants, initial encounter; M62.838 Other muscle spasm; E78.00 Pure hypercholesterolemia, unspecified; Z79.82 Long term (current) use of aspirin; Z79.899 Other long term (current) drug therapy
CPT/HCPCS: 99282; 99283

== ENCOUNTER 2020-12-14 17:49 | Emergency (ER) | payer MEDICARE, BC ==
[2020-12-14 18:33] VITALS: BP 135/69; PULSE 78
--- NOTE | 2020-12-14 19:11 | EDM.PDOC ---
ED HPI GENERAL MEDICAL PROBLEM - General Chief Complaint: Gastrointestinal Problem Stated Complaint: BLEEDING IN INTESTINE Time Seen by Provider: 12/14/20 18:50 Source of Information: Reports: Patient History Limitations: Reports: No Limitations - History of Present Illness INITIAL COMMENTS - FREE TEXT/NARRATIVE: This 75 yo male patient reports to the ED due to increased rectal bleeding. The patient reports that he has a history of rectal bleeding for the past 8 months. The patient reports he has been on Warfarin and when his INR is 1.6 he has no bleeding. The patient reports he was changed to Eliquis last Monday, had no bleeding on , started to have a little bleeding on Monday and Monday, but noticed increased bleeding on Monday. Today, the patient had a CT took his Eliquis at about noon, and had profuse bleeding up to the time of presentation in the ED. Onset: Today Duration: Improving Location: Reports: Other Quality: Reports: Other Severity: Moderate Improves with: Reports: None Worsens with: Reports: None Context: Reports: Other Associated Symptoms: Reports: No Other Symptoms - Related Data Allergies Allergy/AdvReac Type Severity Reaction Status Date / Time rosuvastatin Allergy Headache Verified 12/14/20 18:34 Home Meds: Home Meds Aspirin [Halfprin] 81 mg PO .MO.WE.FR 12/22/16 [History] Pravastatin Sodium 10 mg PO BEDTIME 12/22/16 [History] Metoprolol Tartrate 50 mg PO BID 01/28/17 [History] amLODIPine [Norvasc] 10 mg PO DAILY 03/26/17 [History] Apixaban [Eliquis] 5 mg PO DAILY 12/14/20 [History] Past Medical History HEENT History: Reports: Allergic Rhinitis Cardiovascular History: Reports: Blood Clots/VTE/DVT, High Cholesterol, Hypertension Respiratory History: Reports: None Gastrointestinal History: Reports: Chronic Constipation, Chronic Diarrhea Genitourinary History: Reports: None, Renal Calculus Musculoskeletal History: Reports: Arthritis, Back Pain, Chronic, Neck Pain, Chronic Neurological History: Reports: None Psychiatric History: Reports: Anxiety Endocrine/Metabolic History: Reports: None Hematologic History: Reports: Anticoagulation Therapy Immunologic History: Reports: None Oncologic (Cancer) History: Reports: None Dermatologic History: Reports: Other (See Below) Other Dermatologic History: spots of head from sun - Infectious Disease History Infectious Disease History: Reports: Chicken Pox, Measles, Mumps - Past Surgical History Head Surgeries/Procedures: Reports: None HEENT Surgical History: Reports: Naso-Sinus Surgery Cardiovascular Surgical History: Reports: None, Vascular Surgery Respiratory Surgical History: Reports: None GI Surgical History: Reports: Cholecystectomy, Other (See Below) Other GI Surgeries/Procedures: gallbladder removed Male Surgical History: Reports: Renal Calculus Musculoskeletal Surgical History: Reports: Other (See Below) Other Musculoskeletal Surgeries/Procedures:: right leg surgery x4, abcess in spine Social & Family History - Family History Family Medical History: No Pertinent Family History - Tobacco Use Tobacco Use Status *Q: Never Tobacco User - Caffeine Use Caffeine Use: Reports: Coffee, Soda Caffeine Use Comment: 2-3 cups daily - Recreational Drug Use Recreational Drug Use: No ED ROS GENERAL - Review of Systems Review Of Systems: Comprehensive ROS is negative, except as noted in HPI. ED EXAM, GI/ABD - Physical Exam Exam: See Below Exam Limited By: No Limitations General Appearance: Alert, WD/WN, Mild Distress Eyes: Bilateral: Normal Appearance, EOMI Ears: Normal External Exam, Normal Canal, Hearing Grossly Normal, Normal TMs Nose: Normal Inspection, Normal Mucosa, No Blood Throat/Mouth: Normal Inspection, Normal Lips, Normal Teeth, Normal Gums, Normal Oropharynx, Normal Voice, No Airway Compromise Head: Atraumatic, Normocephalic Neck: Normal Inspection, Supple, Non-Tender, Full Range of Motion Respiratory/Chest: No Respiratory Distress, Lungs Clear, Normal Breath Sounds, No Accessory Muscle Use, Chest Non-Tender Cardiovascular: Normal Peripheral Pulses, Regular Rate, Rhythm, No Edema, No Gallop, No JVD, No Murmur, No Rub GI/Abdominal Exam: Normal Bowel Sounds, Soft, Non-Tender, No Organomegaly, No Distention, No Abnormal Bruit, No Mass, Pelvis Stable (Male) Exam: Deferred Rectal (Males) Exam: Bloody Stool, Heme + Stool Back Exam: Normal Inspection, Full Range of Motion, NT Extremities: Normal Inspection, Normal Range of Motion, Non-Tender, Normal Capillary Refill, No Pedal Edema Neurological: Alert, Oriented, CN II-XII Intact, Normal Cognition, Normal Gait, Normal Reflexes, No Motor/Sensory Deficits Psychiatric: Normal Affect, Normal Mood Skin Exam: Warm, Dry, Intact, Normal Color, No Rash Lymphatic: No Adenopathy Course - Vital Signs Last Recorded V/S: Last Vital Signs Temp 36.8 C 12/14/20 18:31 Pulse 78 12/14/20 18:31 Resp 20 12/14/20 18:31 BP 135/69 12/14/20 18:31 Pulse Ox 95 12/14/20 18:31 - Orders/Labs/Meds Orders: Active Orders 24 hr Category Date Time Status López [CORONAVIRUS COVID-19 JOSE F] [MOLEC] Urgent Lab 12/14/20 20:19 Ordered Labs: Laboratory Tests 12/14/20 12/14/20 12/14/20 Range/Units 19:10 19:10 19:10 WBC 11.9 H (5.0-10.0) 10^3/uL RBC 3.99 L (4.6-6.2) 10^6/uL Hgb 10.6 L (14.0-18.0) g/dL Hct 33.2 L (40.0-54.0) % MCV 83.2 D (80-100) fL MCH 26.6 L (27.0-34.0) pg MCHC 31.9 L (33.0-35.0) g/dL Plt Count 491 H (150-450) 10^3/uL Neut % (Auto) 68.4 (42.2-75.2) % Lymph % (Auto) 18.4 L (20.5-50.1) % Loup % (Auto) 12.0 H (2-8) % Eos % (Auto) 0.7 L (1.0-3.0) % Baso % (Auto) 0.5 (0.0-1.0) % PT 12.0 D (9.0-12.0) SEC INR 1.2 (0.9-1.2) Sodium 132 L (136-145) mmol/L Potassium 4.1 (3.5-5.1) mmol/L Chloride 95 L (98-107) mmol/L Carbon Dioxide 24 (21-32) mmol/L Anion Gap 17.1 H (7-13) mEq/L BUN 17 (7-18) mg/dL Creatinine 1.16 (0.70-1.30) mg/dL Est Cr Clr Drug Dosing 63.90 mL/min Estimated GFR (MDRD) > 60 BUN/Creatinine Ratio 14.7 (No establ ref range) Glucose 89 (70-99) mg/dL Calcium 8.5 (8.5-10.1) mg/dL Total Bilirubin 0.6 (0.2-1.0) mg/dL AST 69 H (15-37) U/L ALT 32 (16-63) U/L Alkaline Phosphatase 140 H (46-116) U/L Total Protein 6.4 (6.4-8.2) g/dL Albumin 2.8 L (3.4-5.0) g/dL Globulin 3.6 Albumin/Globulin Ratio 0.78 Departure - Departure Time of Disposition: 20:33 Disposition: DC/Tfer to [facility] 02 Condition: Serious Clinical Impression: GI bleed Qualifiers: GI bleed type/associated pathology: unspecified gastrointestinal hemorrhage type Qualified Code(s): K92.2 - Gastrointestinal hemorrhage, unspecified - Discharge Information *PRESCRIPTION DRUG MONITORING PROGRAM REVIEWED*: Not Applicable *COPY OF PRESCRIPTION DRUG MONITORING REPORT IN PATIENT KELLI: Not Applicable Forms: Interfacility Transfer EMTALA Care Plan Goals: Discussed the patient's history, examination and lab results with Dr. Kumar ([facility]). Dr. Kumar accepted the patient for continued evaluation and further management as an inpatient at [facility]. The patient will be transported by [facility]. Sepsis Event Note (ED) - Evaluation Sepsis Screening Result: No Definite Risk - Focused Exam Vital Signs: Vital Signs Temp Pulse Resp BP Pulse Ox 12/14/20 18:31 36.8 C 78 20 135/69 95 - My Orders Last 24 Hours: My Active Orders 12/14/20 20:19 López [CORONAVIRUS COVID-19 JOSE F] [MOLEC] Urgent - Assessment/Plan Last 24 Hours: My Active Orders 12/14/20 20:19 López [CORONAVIRUS COVID-19 JOSE F] [MOLEC] Urgent
[2020-12-14 19:36] LABS: ANION GAP 17.1 mEq/L (7-13); CHLORIDE,CL 95 mmol/L (98-107); SODIUM,NA 132 mmol/L (136-145)
== END 2020-12-14 22:05 ==
LOC: DL.ED 17:49
DX: K92.2 Gastrointestinal hemorrhage, unspecified (principal); E78.00 Pure hypercholesterolemia, unspecified; I10 Essential (primary) hypertension; M19.90 Unspecified osteoarthritis, unspecified site; Z79.01 Long term (current) use of anticoagulants; Z79.82 Long term (current) use of aspirin; Z86.718 Personal history of other venous thrombosis and embolism; Z20.822 Contact with and (suspected) exposure to COVID-19
CPT/HCPCS: 36415; 80053; 82272; 85025; 85610; 99284; U0002